=== PATIENT | female | born 1990 | race Caucasian/White ===

== ENCOUNTER 2024-10-21 12:56 | Emergency (ER) | payer OTHER ==
[2024-10-21 13:29] VITALS: BP 112/83; PULSE 78; RESP 18; TEMP 98.2; BMI 20.1
[2024-10-21 14:12] LABS: HCG,QUALITATIVE URINE Negative
[2024-10-21 14:39] LABS: EPITHELIAL CELLS 0-5 /hpf
[2024-10-21 16:27] LABS: HIV INTERPRETATION NEGATIVE (NEGATIVE)
== END 2024-10-21 16:18 | disposition home or self-care (01) ==
LOC: FER 12:56
DX: N93.9 Abnormal uterine and vaginal bleeding, unspecified (principal); R10.2 Pelvic and perineal pain
CPT/HCPCS: 36415; 81003; 81015; 84703; 86780; 86803; 87086; 87389; 87491; 87591; 87661; 99284-25